=== PATIENT | male | born 1960 | race Caucasian/White ===

== ENCOUNTER 2022-04-24 10:41 | Inpatient (IN) ==
--- NOTE | 2022-03-29 09:53 | PAT Medication Instructions ---
Medication Instructions Date of Service March 29, 2022 Home Medications [email or web address] 5 billion cell sprinkle capsule (Probiotic) 1 cap PO DAILY cholecalciferol (vitamin D3) 125 mcg (5,000 unit) tablet (Vitamin D3) 125 mcg PO QAM cyclobenzaprine 5 mg tablet 5 mg PO TID PRN Spasms eletriptan 40 mg tablet 40 mg PO DIRECTED PRN Migraine Headache multivitamin 1 tab PO QAM omega 0-tcw-qsv-fish oil 100 mg-160 mg-1,000 mg capsule (Fish Oil) 1 cap PO QAM STOP taking 2 weeks before surgery (or as soon as possible if surgery is within 2 weeks) omega 8-jak-ncc-fish oil 100 mg-160 mg-1,000 mg capsule (Fish Oil) 1 cap PO QAM DO NOT take the morning of surgery Lactobacil.acidophilus-Bifido.animalis 5 billion cell sprinkle capsule (Probiotic) 1 cap PO DAILY cholecalciferol (vitamin D3) 125 mcg (5,000 unit) tablet (Vitamin D3) 125 mcg PO QAM cyclobenzaprine 5 mg tablet 5 mg PO TID PRN Spasms multivitamin 1 tab PO QAM Take morning of surgery With a small sip of water, OTHERWISE NOTHING TO EAT OR DRINK AFTER MIDNIGHT: eletriptan 40 mg tablet 40 mg PO DIRECTED PRN Migraine Headache (if needed) Take evening before surgery cyclobenzaprine 5 mg tablet 5 mg PO TID PRN Spasms (if needed) eletriptan 40 mg tablet 40 mg PO DIRECTED PRN Migraine Headache (if needed) Other Notes If you have any questions please call us at [phone] or [phone] or [phone] or [phone]
--- NOTE | 2022-04-05 09:37 | Anesthesiology Consultation ---
Date of Service April 05, 2022 Assessment & Plan (1) Encounter for pre-operative examination: COVID screening: Per assessment on 04/05: No known COVID-19 positive contacts or current COVID-19 related symptoms. Travel screen negative. At surgeon discretion if preop Covid testing being done. Chart Review Chart Review: Acceptable Risk for Surgery and Patient seen in Pre Admission Testing Teaching & Discussion Pre-Anesthesia Teaching/Discussion Notes: Instructed NPO after midnight before surgery,except medications with 15 cc of water. Medication instructions provided according to the PAT guidelines. History Surgery Operation Date: 04/24/22 12:25 Proposed Procedures p L3-L4 Decompression and L3-S1 Fusion, L4-S1 Hardware Removal, Spinal Cord Monitoring - Randell Ruiz, Height/Weight Height: 5 ft 6 in Weight: 74.6 kg Allergies Allergy/AdvReac Type Severity Reaction Status Date / Time No Known Allergies Allergy Verified 03/27/22 09:13 Medications Home Medications Medication Instructions Recorded Confirmed Last Taken Lactobacil.acidophilus-[email or web address] 1 cap PO DAILY 03/27/22 03/27/22 Unknown 5 billion cell sprinkle capsule (Probiotic) cholecalciferol (vitamin D3) 125 125 mcg PO QAM 03/27/22 03/27/22 Unknown mcg (5,000 unit) tablet (Vitamin D3) cyclobenzaprine 5 mg tablet 5 mg PO TID PRN Spasms 03/27/22 03/27/22 Unknown eletriptan 40 mg tablet 40 mg PO DIRECTED PRN Migraine 03/27/22 03/27/22 Unknown Headache multivitamin 1 tab PO QAM 03/27/22 03/27/22 Unknown omega 3-vtv-nic-fish oil 100 1 cap PO QAM 03/27/22 03/27/22 Unknown mg-160 mg-1,000 mg capsule (Fish Oil) Past Medical History Medical History BPH (benign prostatic hyperplasia) Lumbar stenosis Migraine Trigeminal neuralgia Occasional left sided facial pain Exercise / Class Metabolic Activity II 4-5 Yardwork/Stairs/Walk up hill Past Surgical History Surgical History Fusion of spine Lumbar History of anesthesia reaction Could not void post-op (had to be cathed, "very painful") History of arthroscopy R/L shoulders History of bunionectomy R/L History of colonoscopy History of esophagogastroduodenoscopy (EGD) History of tonsillectomy History of total knee replacement left History of urologic surgery Hx of hand surgery right Hx of retinal hemorrhage with repair Hx of surgical procedure hole placed in skull to attempt to help trigeminal neuralgia approx 15 yrs ago [place] teeth extracted Past Anesthesia History No Family Hx of Anesthesia Complications and Other (Could not void post-op knee surgery (had to be cathed, "very painful") ) History of PONV No Hx of PONV and Hx of Motion Sickness (Situational) Social History Smoking Status: Never smoker Do You Dip or Chew Tobacco: No Hx Alcohol Use: No Hx Substance Use: No substance use type: does not use Review of Systems Patient denies chest pain, shortness of breath, dyspnea on exertion, fever, chills, cough, wheezing, palpitations. Physical Exam Vital Signs VITALS BP 115/77 P 68 TEMP 98.6 SP02 99%RA RESP 16 PHYSICAL Full cervical extension range of motion. Full TMJ range of motion. TMD 3 finger breaths Mallampati Score 3 Dentition: missing side, upper front caps, several crowns Lungs: clear throughout to auscultation Cardiac: regular rate and rhythm, no murmurs noted Spine: normal Carotid arteries: negative bruit Extremities: no edema Lab Results Anesthesia Preop Results Results Anesthesia Widget: WBC 5.86 K/ul (4.8-10.8) 04/05/22 Hgb 14.5 g/dl (14.0-18.0) 04/05/22 Hct 42.5 % (40.1-51.0) 04/05/22 Plt 150 K/uL (130-400) 04/05/22 Na 140 mmol/L (136-145) 04/05/22 K 4.2 mmol/L (3.5-5.1) 04/05/22 Cl 103 mmol/L (98-107) 04/05/22 CO2 32 mmol/L (21-32) 04/05/22 BUN 20 mg/dl (6-23) 04/05/22 Creat 0.89 mg/dl (0.6-1.4) 04/05/22 Glucose Level 102 mg/dl (70-99(Fasting)) H 04/05/22 PT 11.4 Seconds (9.0-12.0) 04/05/22 PTT 30.3 Seconds (21.0-31.0) 04/05/22 INR 1.1 (0.9-1.1) 04/05/22 Urine Color Yellow 04/05/22 Urine Appearance Turbid (Clear) A 04/05/22 Urine pH 8.5 (4.5-7.5) H 04/05/22 Urine Specific [place] 1.016 (1.000-1.030) 04/05/22 Urine Protein Negative (Negative) 04/05/22 Urine Glucose (UA) Negative (Negative) 04/05/22 Urine Ketones Negative (Negative) 04/05/22 Urine Blood Negative (Negative) 04/05/22 Urine Nitrite Negative (Negative) 04/05/22 Urine Bilirubin Negative (Negative) 04/05/22 Urine Urobilinogen Negative (Negative) 04/05/22 Urine Leukocyte Esterase Negative (Negative) 04/05/22 Urine WBC (Auto) 1-5 /hpf (0-5) 04/05/22 Urine RBC (Auto) 0-4 /hpf (0-4) 04/05/22 Urine Hyaline Casts (Auto) 1-5 /lpf (0-5) 04/05/22 Urine Epithelial Cells (Auto) 0-5 /lpf (0-5) 04/05/22 Urine Bacteria (Auto) Negative (Negative) 04/05/22 Blood Type O Negative 04/05/22 Antibody Screen NEGATIVE 04/05/22 Testing Electrocardiogram Date: 04/05/22 NSR at 71bpm. Chest X-Ray Date: 10/25/21 Mild atherosclerotic calcification of the aortic arch and descending thoracic aorta. No evidence of active disease in the chest. Stress Test Date: 01/26/21 There is no evidence of stress-induced ischemia. 99% MPHR COVID-19 Risk Screen Screening Information COVID-19 Screen Date: 04/05/22 Exposure 21 Days Family/Household +COVID Last 21 Days: No Exposure 10 Days Any COVID Exposure Last 10 Days: No Symptoms Last 10 Days Experienced COVID Sx Last 10 Days: No + COVID 0-90 Days COVID + in Last 0-90 Days: No
[~2022-04-24 10:41] MED LIST: ACETAMINOPHEN 500 MG TAB PO SCH; CeleBREX 200 MG CAP PO SCH; GABAPENTIN 600 MG DOSE PO SCH; LR 15ML/HR IV SCH; SUGAMMADEX SODIUM 200 MG/2 ML VIAL IV ONE; ceFAZolin 2000MG 2,000 MG/15 ML SYR IV SCH
[2022-04-24] MEDS ORDERED: DEXAMETHASONE SOD INJ 4 MG/ML VIAL ONE ×3 (10:50)
[2022-04-24] MEDS ORDERED: GLYCOPYRROLATE 0.2 MG/ML VIAL ONE (10:50)
[2022-04-24] MEDS ORDERED: MIDAZOLAM HCL 1 MG/ML 2ML VIAL ONE (10:50)
[2022-04-24] MEDS ORDERED: ROCURONIUM BROMIDE 10 MG/ML 5 ML VIAL IV ONE ×4 (10:50→13:15)
[2022-04-24] MEDS ORDERED: ONDANSETRON INJ 2 MG/ML 2 ML VIAL ONE (10:50)
[2022-04-24] MEDS ORDERED: PROPOFOL IV EMULSION 10 MG/ML 20 ML VIAL IV ONE (10:50)
[2022-04-24] MEDS ORDERED: fentaNYL citrate 100 MCG/2 ML VIAL ONE ×3 (10:50→14:09)
[2022-04-24] MEDS ORDERED: LABETALOL HCL IV 5 MG/ML 20ML IV PRN (11:35)
[2022-04-24] MEDS ORDERED: NALOXONE HCL 0.4 MG/1 ML VIAL/CARP IV PRN ×2 (11:35→16:36)
[2022-04-24] MEDS ORDERED: ONDANSETRON INJ 2 MG/ML 2 ML VIAL IV PRN ×2 (11:35→16:36)
[2022-04-24] MEDS ORDERED: FLUMAZENIL 0.1 MG/1 ML 10 ML VIAL IV PRN (11:35)
[2022-04-24] MEDS ORDERED: ATROPINE SULFATE 0.1 MG/ML 10ML SYR IV PRN (11:35)
[2022-04-24] MEDS ORDERED: ePHEDrine sulfate 50 MG/ML AMP IV PRN (11:35)
[2022-04-24] MEDS ORDERED: PROMETHAZINE HCL 12.5 MG in SODIUM CHLORIDE 0.9% 50 ML IV PRN ×2 (11:35→16:36)
--- NOTE | 2022-04-24 12:20 | History & Physical Bridge Note ---
Date of Service April 24, 2022 History & Physical Bridge Note I have examined the patient, reviewed the History & Physical and in the interval since the performance of the History & Physical I have noted the following changes of clinical significance: no changes noted
--- NOTE | 2022-04-24 12:21 | History & Physical Report ---
Date of Service April 24, 2022 Assessment & Plan (1) Neurogenic claudication due to lumbar spinal stenosis: Plan: L3-L4 decompression and L3-S1 fusion, L4-S1 hardware removal History of Present Illness Chief Complaint: Back and leg pain Primary Care Provider: Harish Limon MD This is a 62-year-old male who presents with chronic persistent back and bilateral leg pain after an extensive course of nonoperative care is here for surgical invention. Allergies Allergy/AdvReac Type Severity Reaction Status Date / Time No Known Allergies Allergy Verified 04/24/22 11:12 Home Medications Medication Instructions Recorded Confirmed Type Lactobacil.acidophilus-Bifido.animalis 1 cap PO DAILY 03/27/22 04/24/22 History 5 billion cell sprinkle capsule (Probiotic) cholecalciferol (vitamin D3) 125 125 mcg PO QAM 03/27/22 04/24/22 History mcg (5,000 unit) tablet (Vitamin D3) cyclobenzaprine 5 mg tablet 5 mg PO TID PRN Spasms 03/27/22 04/24/22 History eletriptan 40 mg tablet (Relpax) 40 mg PO DIRECTED PRN Migraine 03/27/22 04/24/22 History Headache multivitamin 1 tab PO QAM 03/27/22 04/24/22 History omega 3-imz-jnf-fish oil 100 1 cap PO QAM 03/27/22 04/24/22 History mg-160 mg-1,000 mg capsule (Fish Oil) Past Med/Surg History Medical History BPH (benign prostatic hyperplasia) Lumbar stenosis Migraine Trigeminal neuralgia Occasional left sided facial pain Surgical History Fusion of spine Lumbar History of anesthesia reaction Could not void post-op (had to be cathed, "very painful") History of arthroscopy R/L shoulders History of bunionectomy R/L History of colonoscopy History of esophagogastroduodenoscopy (EGD) History of tonsillectomy History of total knee replacement left History of urologic surgery Hx of hand surgery right Hx of retinal hemorrhage with repair Hx of surgical procedure hole placed in skull to attempt to help trigeminal neuralgia approx 15 yrs ago [place] teeth extracted Social History Smoking Status: Never smoker Second Hand Exposure: No; Do You Dip or Chew Tobacco: No; Tobacco Cessation Education Requested by Patient: No Hx Alcohol Use: No Hx Substance Use: No Preferred Language: Belarusian Communication Ability: Effective Development Planner Required: No Beliefs That Will Affect Care: None Current Living Situation: Alone Other Information That Helps Us Care for You: No Feels Safe at Home: Yes Safety Concerns: Feels Safe At This Time Assistive Devices: Glasses Physical Exam Physical Exam: Patient is alert and oriented Heart regular rhythm Lungs clear Results & Data Results & Data ([facility]) Vital Signs (Past 12 Hours) Vital Signs Temp Pulse Resp BP Pulse Ox O2 Del Method 04/24/22 11:16 36.7 C 64 20 137/84 100 Room Air
[2022-04-24] MEDS ORDERED: BUPIVACAINE/EPINEPHRINE 0.5% MPF 1:200,000 30 ML VIAL ONE (12:25)
[2022-04-24] MEDS ORDERED: ceFAZolin 330 MG/ML 1 GM VIAL ONE (12:25)
[2022-04-24] MEDS ORDERED: FLOSEAL HEMOSTATIC MATRIX 10ML TOP ONE (13:46)
--- NOTE | 2022-04-24 14:24 | Operative Report ---
Post Operative Report Pre & Post Diagnosis Operation Date: 04/24/22 12:45 Pre-Op Diagnosis: Neurogenic Claudication due to Lumbar Spinal Stenosis Post-Op Diagnosis: Neurogenic Claudication due to Lumbar Spinal Stenosis I identified the patient and participated in the time-out.: Yes Procedure Operation Date: 04/24/22 12:45 Actual Procedures #1 removal of posterior instrumentation L4-L5 L5-S1. #2 exploration of fusion L4-L5 L5-S1. #3 placement of a lumbar decompression with bilateral medial facetectomies and foraminotomies L2-L3 L3-L4. #4 posterior spinal fusion L3-L4. #5 placement of posterior instrumentation L3-L4. #6 interbody fusion L3-L4. #[address] Spira 12 x 26 mm at L3-L4 per #8 placement of locally harvested morselized autograft in the posterior gutters. #9 placement of I factor combined with V toss in the interbody space and posterior lateral gutters. Surgeon Randell Ruiz, Inspector Hairspring Truing Lizzy Magallanes Estimated Blood Loss 120 Findings Consistent with Post-Op Diagnosis Specimens None Indications This is a 8-year-old male who presents above-mentioned diagnosis after failed course of nonoperative care is here for surgical invention. Description of Procedure The patient was met with identified informed consent obtained. Patient was then taken operative suite underwent patient placed in a prone position on the Daniel table on top Raji frame. All bony prominences well-padded eyes inspected to ensure no external pressure placed upon the. This point the lumbar spine was prepped and draped in normal sterile fashion. Sharp dissection with the assistance of Bovie cautery performed down to and exposing the lamina transverse processes of L3 and instrumentation at L4-L5 and S1 levels bilaterally. And then proceeded move the hardware bilaterally explore the fusion mass noting it to be mature and intact. Then performed a complete nati ectomy of L3 partial medically L2 including bilateral medial facetectomies and foraminotomies addressing severe spinal stenosis. Pedicle screws were then placed in L3 and L4 bilaterally with assistance of fluoroscopy and the properly sized juan carlos placed. By way of a transforaminal approach and left complete discectomy of L3-L4 was performed endplates curetted to subcortical bleeding bone and a 12 x 26 mm spiral cage with I factor tapped in position. The rods then locked in final position bilaterally. The transverse processes of L3 and L4 burred to subcortical bleeding bone. I factor bone of the test and locally harvested morselized autograft placed in the posterior gutters. 15 round TALISHA inserted. The incision was then closed with 1 Vicryl in the fascia 2-0 Vicryl subcutaneously and 4 Monocryl for final skin closure. Steri-Strips dressings placed. Patient waken taken to PACU in stable condition. Please note spinal cord monitoring was utilized at the procedure no changes noted. Lastly Lizzy Magallanes was present at the entire surgery and while the patient positioning complex portions of the surgery and final skin closure. I attest to the content of the Intraoperative Record and any orders documented therein. Any exceptions are noted below.
[2022-04-24] MEDS: fentaNYL citrate 100 MCG/2 ML VIAL IV PRN ×4 (14:39→14:54)
--- NOTE | 2022-04-24 14:50 | Fluoroscopy Report ---
FL lumbar spine 2-3V CLINICAL HISTORY: L3-S1 DFI/HR L4-S1 TECHNIQUE: 2 views were obtained with the C-arm in the OR with the above procedure. Total fluoroscopy time was 13.6 seconds. Radiation dose was 5.35 mGy. Comparison: Comparison is made to lumbar spine fluoroscopy 12/10/2013 FINDINGS/IMPRESSION: Intraoperative images were obtained of removal of L4 S1 hardware and discectomy and fusion of L3-L4. Please correlate with intraoperative fluoroscopy and operative report. ACT 112: Negative or not required by law. Electronically signed by: Magan Santos M.D. 04/24/2022 2:49 PM
[2022-04-24] MEDS: HYDROmorphone INJ 1 MG/ML SYRINGE IV PRN ×12 (14:59→15:54)
[2022-04-24] MEDS ORDERED: HYDROmorphone INJ 0.5 MG/0.5 ML SYR IV STA (15:39)
--- NOTE | 2022-04-24 16:06 | Anesthesiology Progress Note ---
Date of Service April 24, 2022 Anesthesia Post Procedure Vital Signs Vital Signs: Temp Pulse Resp BP Pulse Ox O2 Del Method O2 Flow Rate 04/24/22 15:55 36.5 C 68 17 137/83 100 Nasal Cannula 2 04/24/22 15:45 56 L 12 122/72 100 Nasal Cannula 2 04/24/22 15:35 66 21 141/80 H 100 Nasal Cannula 2 04/24/22 15:25 69 13 151/86 H 100 Nasal Cannula 2 04/24/22 15:15 72 20 129/89 100 Nasal Cannula 2 04/24/22 15:05 73 17 143/84 H 100 Nasal Cannula 2 04/24/22 14:55 77 18 146/86 H 100 Oxymask 3 04/24/22 14:45 85 12 152/90 H 100 Oxymask 5 04/24/22 14:35 36.0 C L 95 H 14 151/88 H 100 Oxymask 9 04/24/22 11:16 36.7 C 64 20 137/84 100 Room Air Pain Intensity Back: Pain Intensity: 7 Transfer of Care Handoff Completed per policy Notes Mental Status: alert / awake / arousable Patient Amnestic to Procedure: Yes Nausea / Vomiting: adequately controlled Pain: adequately controlled Airway Patency, RR, SpO2: stable & adequate BP & HR: stable & adequate Hydration State: stable & adequate Anesthetic Complications: no major complications apparent
[2022-04-24] MEDS ORDERED: bisacodyL 10 MG SUPP PR PRN (16:36)
[2022-04-24] MEDS ORDERED: ALUMINUM/MAGNESIUM SUSP 30 ML UDC PO PRN (16:36)
[2022-04-24] MEDS ORDERED: DO NOT ADMINISTER PNEUMOCOCCAL VACCINE PRN (16:36)
[2022-04-24] MEDS ORDERED: LORazepam 2 MG/1 ML VIAL IV PRN (16:36)
[2022-04-24] MEDS ORDERED: FAMOTIDINE 20 MG TAB PO PRN (16:36)
[2022-04-24] MEDS ORDERED: ONDANSETRON 4 MG OD TAB PO PRN (16:36)
[2022-04-24] MEDS ORDERED: HYDROmorphone INJ 1 MG/ML SYRINGE IV PRN (16:36)
[2022-04-24] MEDS ORDERED: ACETAMINOPHEN 1,000 MG/100 ML VIAL IV PRN (16:36)
[2022-04-24] MEDS ORDERED: hydrOXYzine HCl 25 MG TAB PO PRN (16:36)
[2022-04-24] MEDS ORDERED: MAGNESIUM HYDROXIDE SUSP 30 ML UDC PO PRN (16:36)
[2022-04-24] MEDS ORDERED: METOCLOPRAMIDE HCL INJ 5 MG/ML 2 ML VIAL IV PRN (16:36)
[2022-04-24] MEDS ORDERED: SOD PHOSPHATE/SOD BIPHOSPHATE ENEMA 132 ML BTL PR PRN (16:36)
[2022-04-24] MEDS ORDERED: traMADol HCL 50 MG TABLET PO PRN (16:36)
[2022-04-24] MEDS ORDERED: DO NOT ADMINISTER FLU VACCINE PRN (16:36)
[2022-04-24] MEDS ORDERED: diphenhydrAMINE Capsule 25 MG CAP PO PRN (16:36)
[2022-04-24] MEDS ORDERED: CYCLOBENZAPRINE HCL 5 MG TAB PO PRN (16:36)
[2022-04-24] MEDS: HYDROmorphone INJ 0.5 MG/0.5 ML SYR IV PRN ×2 (17:04→18:46)
--- NOTE | 2022-04-24 17:13 | Consultation ---
Date of Consultation April 24, 2022 Assessment & Plan (1) Neurogenic claudication due to lumbar spinal stenosis: (2) BPH (benign prostatic hyperplasia): (3) H/O migraine: Plan Mr. Snow is a 62-year-old male who presented to the [facility] for an elective procedure under the care of Dr. Ruiz for decompression and fusion of L3-L4 and hardware removal and L4-S1 after failed conservative management as an outpatient. Patient relatively healthy at [facility] with history of migraines and BPH. Neurogenic Claudication d/t lumbar spinal stenosis: -POD#0 s/p decompression and fusion surgery L3-L4, along with hardware removal L4-S1 with Dr. ruiz. -EBL 120mL; TALISHA drain x1 -Per ortho for pain control, wound care, anticoagulation and activities. -Monitor H&H, pre op Hgb 14.5; trend in AM -continue incentive spirometry -PT/OT when appropriate -Remove appiah when IV fluids discontinued and working with PT/OT H/O Migranes: -Reports 8-9 headaches per month for the past 4 years -Takes Eletriptan PRN -Recently started on Nurtec every other day to prevent headaches Disposition: PCP: Dr. Limon with [facility] CODE STATUS: Full code VTE prophylaxis per admitting team; teds and SCDs A total of 34 minutes was spent with greater than 50% of that time personally reviewing all current laboratory work and diagnostic imaging studies obtained in the ED. Additionally, I was able to review the patients past medication reconciliation and history with direct visualization in the patients chart. Included in the time above, a portion of that time was spent assessing the patient while discussing and collaborating with specialists, if necessary, and making medical decisions regarding orders to be placed. All of the aforementioned completed while collaborating with Dr. Victoria for a full treatment plan. Please see her addendum for further details. Supervising Physician Co-Signing Physician Notes Pt seen and examined by me, care coordinated w/ Coty. MIRTAH Frias, pls refer to her note above for further detail. Mr. Snow is a 62 yo M w/ hx of migraine HAs, BPH, hx of lumbar stenosis and previous hx of lumbar spine surgery who is now now s/p decompression and fusion of L3-L4 and hardware removal and L4-S1 after failed conservative management as an outpatient. Patient is currently laying in bed, comfortable, in NAD. Just received Dilaudid. He is awake alert oriented answers appropriately. Currently denies any pain or discomfort, no chest pain shortness of breath, headache nausea or abdominal pain. He does have a Appiah catheter, draining yellow urine. He is moving his toes, SCDs are applied. Heart sounds regular. Lung sounds clear to auscultation bilaterally. Abdomen soft nontender nondistended, positive bowel sounds. Skin is warm and dry. Medications reviewed. Will check H&H in the morning. Continue to closely monitor. MD Julien History of Present Illness Requesting Physician: Dr. Ruiz Reason for Consultation: Postop medical management Attending Physician: Randell Ruiz DO History of Present Illness Mr. Snow is a 62-year-old male who presented to the [facility] for an elective procedure under the care of Dr. Ruiz for decompression and fusion of L3-L4 and hardware removal and L4-S1 after failed conservative management as an outpatient. Patient relatively healthy at baseline with history of migraines and BPH. Patient is sitting upright in his hospital bed in no apparent distress. Patient is AAOx4. Patient just received a dose of IV Dilaudid 10 minutes ago. Patient had previous decompression and fusion surgery under the care of Dr. Welch. Patient currently denies headache, dizziness, shortness of breath, chest pain, palpitations, numbness or tingling in lower extremities, recent falls or trauma or loss of bowel or bladder function. Patient does have indwelling Appiah catheter at this time with clear yellow output. Patient is currently on 2 L nasal cannula however SPO2 100% so suggested removal of supplemental O2. Patient states that he was diagnosed with migraines 4 years ago without aura. Reports having 8-9 migraines per month and takes eletriptan as needed when the headache starts and recently was started on Nurtec every other day to prevent headaches. His daughter Pat is his main contact center associate for any information. [facility] hospitalist service was consulted for postoperative medical management. [facility] hospitalists are available 23/10 via [place] text for any additional assistance that we can provide. Thank you kindly for this consultation. Please see below for further details and assessment and plan. Allergies Allergy/AdvReac Type Severity Reaction Status Date / Time No Known Allergies Allergy Verified 04/24/22 11:12 Home Medications Medication Instructions Recorded Confirmed Type Lactobacil.acidophilus-Bifido.animalis 1 cap PO DAILY 03/27/22 04/24/22 History 5 billion cell sprinkle capsule (Probiotic) cholecalciferol (vitamin D3) 125 125 mcg PO QAM 03/27/22 04/24/22 History mcg (5,000 unit) tablet (Vitamin D3) cyclobenzaprine 5 mg tablet 5 mg PO TID PRN Spasms 03/27/22 04/24/22 History eletriptan 40 mg tablet (Relpax) 40 mg PO DIRECTED PRN Migraine 03/27/22 04/24/22 History Headache multivitamin 1 tab PO QAM 03/27/22 04/24/22 History omega 1-bxj-loo-fish oil 100 1 cap PO QAM 03/27/22 04/24/22 History mg-160 mg-1,000 mg capsule (Fish Oil) Patient History Medical History (Updated 04/24/22 @ 17:10 by MIRTHA Chu) BPH (benign prostatic hyperplasia) H/O migraine Lumbar stenosis Migraine Trigeminal neuralgia Occasional left sided facial pain Surgical History Fusion of spine Lumbar History of anesthesia reaction Could not void post-op (had to be cathed, "very painful") History of arthroscopy R/L shoulders History of bunionectomy R/L History of colonoscopy History of esophagogastroduodenoscopy (EGD) History of tonsillectomy History of total knee replacement left History of urologic surgery Hx of hand surgery right Hx of retinal hemorrhage with repair Hx of surgical procedure hole placed in skull to attempt to help trigeminal neuralgia approx 15 yrs ago [place] teeth extracted Social History Smoking Status: Never smoker Second Hand Exposure: No; Do You Dip or Chew Tobacco: No; Tobacco Cessation Education Requested by Patient: No Hx Alcohol Use: No Hx Substance Use: No Preferred Language: Nepalese Communication Ability: Effective [employer]velopment [employer] Required: No Beliefs That Will Affect Care: None Current Living Situation: Alone Other Information That Helps Us Care for You: No Feels Safe at Home: Yes Safety Concerns: Feels Safe At This Time Assistive Devices: Glasses Review of Systems Review of Systems: Neuro: (-) Falls, trauma, slurred speech (+) incisional pain HEENT: (-) ROMAN, dizziness, dysphagia, visual or auditory changes CV: (-) CP, palpitations, swelling Resp: (-) SOB GI: (-) appetite changes, N/V/D, bowel changes : (-) urinary changes Skin: (-) rashes Psych: (-) anxiety, depression Physical Exam Physical Exam: Neuro: AAOx4, PERRLA, no aphagia, memory changes, CNII-XII grossly intact HEENT: head normocephalic, moist mucus membranes CV: S1/S2, (-) M/G/R, (-) edema, cap refill < 3 seconds . TALISHA drain x1 with tolu red blood. Resp: Lungs CTA in all doyle. On RA GI: Abdomen S/NT/ND, Ax4 bowel sounds, (-) CVA tenderness Musculoskeletal: 5/5 B/L UE strength, 5/5 B/L LE strength. No gait disturbance Skin: (-) rashes , (-) erythema. Lumbar dressing C/D/I. Psych: euthymic mood [facility] Data ([facility]) Vital Signs (Past 12 Hours) Vital Signs Temp Pulse Pulse Resp BP Pulse Ox O2 Del Method 04/24/22 17:06 36.4 C L 85 16 142/87 H 100 Nasal Cannula 04/24/22 16:15 73 13 129/71 99 Nasal Cannula 04/24/22 16:05 55 L 12 136/66 100 Nasal Cannula 04/24/22 15:55 36.5 C 68 17 137/83 100 Nasal Cannula 04/24/22 15:45 56 L 12 122/72 100 Nasal Cannula 04/24/22 15:35 66 21 141/80 H 100 Nasal Cannula 04/24/22 15:25 69 13 151/86 H 100 Nasal Cannula 04/24/22 15:15 72 20 129/89 100 Nasal Cannula 04/24/22 15:05 73 17 143/84 H 100 Nasal Cannula 04/24/22 14:55 77 18 146/86 H 100 Oxymask 04/24/22 14:45 85 12 152/90 H 100 Oxymask 04/24/22 14:35 36.0 C L 95 H 14 151/88 H 100 Oxymask 04/24/22 11:16 36.7 C 64 20 137/84 100 Room Air O2 Flow Rate 04/24/22 17:06 2 04/24/22 16:15 2 04/24/22 16:05 2 04/24/22 15:55 2 04/24/22 15:45 2 04/24/22 15:35 2 04/24/22 15:25 2 04/24/22 15:15 2 04/24/22 15:05 2 04/24/22 14:55 3 04/24/22 14:45 5 04/24/22 14:35 9 04/24/22 11:16 Laboratory Results 04/24/22 04/24/22 Range/Units Unknown 11:00 SARS-CoV-2, RNA, NAAT NEGATIVE (NEGATIVE) Blood Type O Negative Antibody Screen NEGATIVE Crossmatch See Detail Diagnostic Findings Lumbar Spine X-Ray 04/24/22 12:45 FL lumbar spine 2-3V CLINICAL HISTORY: L3-S1 DFI/HR L4-S1 TECHNIQUE: 2 views were obtained with the C-arm in the OR with the above procedure. Total fluoroscopy time was 13.6 seconds. Radiation dose was 5.35 mGy. Comparison: Comparison is made to lumbar spine fluoroscopy 12/10/2013 FINDINGS/IMPRESSION: Intraoperative images were obtained of removal of L4 S1 hardware and discectomy and fusion of L3-L4. Please correlate with intraoperative fluoroscopy and operative report. ACT 112: Negative or not required by law. Electronically signed by: Magan Santos M.D. 04/24/2022 2:49 PM Medications Administered Current Inpatient Medications Acetaminophen (Acetaminophen 500 Mg Tab) 1,000 mg PO PREOP SANDI Stop: 04/24/22 18:00 Last Admin: 04/24/22 11:28 Dose: 1,000 mg Acetaminophen (Acetaminophen 500 Mg Tab) 1,000 mg PO Q8H PRN PRN Reason: MILD Pain Scale 1,2,3 & Pre PT Stop: 05/24/22 16:35 Al Hydrox/Mg Hydrox/Simethicone (Aluminum/Magnesium Susp 30 Ml Udc) 30 ml PO Q6H PRN PRN Reason: Dyspepsia Stop: 05/24/22 16:35 Atropine Sulfate (Atropine Sulfate 0.1 Mg/Ml 10ml Syr) 0.5 mg IV Q1M PRN PRN Reason: PACU Use-HR<40 &/or Bradycardi Stop: 04/24/22 19:35 Bisacodyl (Bisacodyl 10 Mg Supp) 10 mg ND DAILY PRN PRN Reason: Constipation Stop: 05/24/22 16:35 Celecoxib (Celebrex 200 Mg Cap) 200 mg PO PREOP SANDI Stop: 04/24/22 18:00 Last Admin: 04/24/22 11:28 Dose: 200 mg Cyclobenzaprine HCl (Cyclobenzaprine Hcl 5 Mg Tab) 5 mg PO TID PRN PRN Reason: Spasms Stop: 05/24/22 16:35 Diphenhydramine HCl (Diphenhydramine Capsule 25 Mg Cap) 25 mg PO Q6H PRN PRN Reason: Allergic Rhinitis/Insomnia Stop: 05/24/22 16:35 Ephedrine Sulfate (Ephedrine Sulfate 50 Mg/Ml Amp) 5 mg IV Q5M PRN PRN Reason: PACU Use Only-SBP<90 mmHg Stop: 04/24/22 19:35 Famotidine (Famotidine 20 Mg Tab) 20 mg PO Q12H PRN PRN Reason: Dyspepsia Stop: 05/24/22 16:35 Fentanyl Citrate (Fentanyl Citrate 100 Mcg/2 Ml Vial) 25 mcg IV Q5M PRN PRN Reason: PACU Use Only-Pain Stop: 04/24/22 19:35 Last Admin: 04/24/22 14:54 Dose: 25 mcg Flumazenil (Flumazenil 0.1 Mg/1 Ml 10 Ml Vial) 0.2 mg IV Q2M PRN PRN Reason: PACU Use Only-Benzo Reversal Stop: 04/24/22 19:36 Gabapentin (Gabapentin 600 Mg Dose) 600 mg PO PREOP SANDI Stop: 04/24/22 18:00 Last Admin: 04/24/22 11:28 Dose: 600 mg Hydromorphone HCl (Hydromorphone Inj 1 Mg/Ml Syringe) 0.25 mg IV Q5M PRN PRN Reason: PACU Use Only-Pain Stop: 04/24/22 19:36 Last Admin: 04/24/22 15:54 Dose: 0.25 mg Hydromorphone HCl (Hydromorphone Inj 0.5 Mg/0.5 Ml Syr) 0.5 mg IV Q3H PRN PRN Reason: MODERATE Pain (Scale 4,5,6) & Pre PT Stop: 05/08/22 16:35 Last Admin: 04/24/22 17:04 Dose: 0.5 mg Hydromorphone HCl (Hydromorphone Inj 1 Mg/Ml Syringe) 1 mg IV Q3H PRN PRN Reason: SEVERE Pain (Scale 7,8,9,10) Stop: 05/08/22 16:35 Hydroxyzine HCl (Hydroxyzine Hcl 25 Mg Tab) 25 mg PO Q8H PRN PRN Reason: Anxiety Stop: 05/24/22 16:35 Cefazolin Sodium (Ancef 2000mg) 2,000 mg in 15 mls @ 3.75 mls/min IV PREOP SANDI; Protocol Stop: 04/24/22 18:00 Last Admin: 04/24/22 12:40 Dose: 3.75 mls/min Lactated Ringer's (Lr) 1,000 mls @ 15 mls/hr IV .Q24H SANDI Stop: 04/25/22 05:59 Last Infusion: 04/24/22 12:40 Dose: Infused Promethazine HCl 12.5 mg/ (Sodium Chloride) 50.5 mls @ 204 mls/hr IV ONCE PRN PRN Reason: PACU Use Only-Nausea/Vomiting Stop: 04/24/22 19:36 Lactated Ringer's (Lr) 1,000 mls @ 100 mls/hr IV .Q10H SANDI Stop: 05/24/22 16:35 Promethazine HCl 12.5 mg/ (Sodium Chloride) 50.5 mls @ 202 mls/hr IV Q6H PRN PRN Reason: Nausea &/or Vomiting Stop: 05/24/22 16:35 Acetaminophen (Ofirmev) 1,000 mg in 100 mls @ 400 mls/hr IV Q8H PRN PRN Reason: Pain Rating 1-3 & Pre PT Stop: 04/25/22 16:36 Cefazolin Sodium (Ancef 2000mg) 2,000 mg in 15 mls @ 3.75 mls/min IV Q8H SANDI; Protocol Stop: 04/25/22 04:33 Dexamethasone 6 mg/ Syringe 1.5 mls @ 1 mls/min IV DAILY SANDI Stop: 04/27/22 09:02 Influenza Virus Vaccine Quadrival (Do Not Administer Flu Vaccine) 1 each N/A PRN PRN PRN Reason: Notification Stop: 05/24/22 16:35 Labetalol HCl (Labetalol Hcl Iv 5 Mg/Ml 20ml) 5 mg IV Q5M PRN PRN Reason: PACU Use-SBP>160 or DBP>100 Stop: 04/24/22 19:36 Lorazepam (Lorazepam 0.5 Mg Tab) 0.5 mg PO Q8H PRN PRN Reason: Sedation/Anxiety Stop: 05/24/22 16:35 Lorazepam (Lorazepam 2 Mg/1 Ml Vial) 0.5 mg IV Q8H PRN PRN Reason: Sedation/Anxiety Stop: 05/24/22 16:35 Magnesium Hydroxide (Magnesium Hydroxide Susp 30 Ml Udc) 30 ml PO Q24H PRN PRN Reason: Constipation Stop: 05/24/22 16:35 Metoclopramide HCl (Metoclopramide Hcl Inj 5 Mg/Ml 2 Ml Vial) 10 mg IV Q6H PRN PRN Reason: Nausea &/or Vomiting Stop: 05/24/22 16:35 Miscellaneous (Relpax 40mg Tab ~ Order Awaiting Action) 1 each N/A QS SANDI Stop: 05/25/22 00:00 Naloxone HCl (Naloxone Hcl 0.4 Mg/1 Ml Vial/Carp) 0.2 mg IV Q2M PRN PRN Reason: PACU Use Only-Opiate Reversal Stop: 04/24/22 19:36 Naloxone HCl (Naloxone Hcl 0.4 Mg/1 Ml Vial/Carp) 0.1 mg IV Q5M PRN PRN Reason: Oversedation/Resp depression Stop: 05/24/22 16:35 Ondansetron HCl (Ondansetron Inj 2 Mg/Ml 2 Ml Vial) 4 mg IV ONCE PRN PRN Reason: PACU Use Only-Nausea/Vomiting Stop: 04/24/22 19:36 Ondansetron HCl (Ondansetron Inj 2 Mg/Ml 2 Ml Vial) 4 mg IV Q6H PRN PRN Reason: Nausea &/or Vomiting Stop: 05/24/22 16:35 Ondansetron HCl (Ondansetron 4 Mg Od Tab) 4 mg PO Q6H PRN PRN Reason: Nausea Stop: 05/24/22 16:35 Oxycodone HCl (Oxycodone Hcl Ir 5 Mg Tab (Immediate Release)) 5 - 10 mg PO Q4H PRN PRN Reason: Pain & Pre PT Stop: 05/08/22 16:35 Pneumococcal Polyvalent Vaccine (Do Not Administer Pneumococcal Vaccine) 1 each N/A PRN PRN PRN Reason: Notification Stop: 05/24/22 16:35 Polyethylene Glycol (Polyethylene (Miralax) 17 Gm Pack) 17 gm PO Q6 SANDI Stop: 05/25/22 05:59 Senna/Docusate Sodium (Docusate Sodium/Senna 50/8.6mg Tab) 2 tab PO HS SANDI Stop: 05/24/22 20:59 Sodium Biphosphate/Sodium Phosphate (Sod Phosphate/Sod Biphosphate Enema 132 Ml Btl) 132 ml ND ONE PRN PRN Reason: Constipation Stop: 05/24/22 16:35 Tramadol HCl (Tramadol Hcl 50 Mg Tablet) 50 - 100 mg PO Q4H PRN PRN Reason: Moderate-Severe pain & Pre PT Stop: 05/24/22 16:35 Vitamin D (Cholecalciferol 5,000 Units 125 Mcg Tab) 5,000 units PO QAM SANDI Stop: 05/25/22 08:59
[2022-04-24] MEDS: oxyCODONE HCL IR 5 MG TAB (IMMEDIATE RELEASE) PO PRN ×2 (17:49→23:08)
[2022-04-24] MEDS: DOCUSATE SODIUM/SENNA 50/8.6MG TAB PO SCH (19:53)
[2022-04-24] MEDS: ceFAZolin 2000MG 2,000 MG/15 ML SYR IV SCH (20:05)
[2022-04-24] MEDS: LACTATED RINGER'S 1,000 ML IV SCH (20:05)
[2022-04-25] MEDS: LACTATED RINGER'S 1,000 ML IV SCH (03:56)
[2022-04-25] MEDS: ceFAZolin 2000MG 2,000 MG/15 ML SYR IV SCH (03:59)
[2022-04-25] MEDS: oxyCODONE HCL IR 5 MG TAB (IMMEDIATE RELEASE) PO PRN ×5 (04:00→20:03)
[2022-04-25] MEDS: POLYETHYLENE (MIRALAX) 17 GM PACK PO SCH ×3 (06:06→17:33)
[2022-04-25] MEDS: ACETAMINOPHEN 500 MG TAB PO PRN ×2 (06:08→14:31)
[2022-04-25 07:03] LABS: Calcium 8.5 mg/dl (8.5-10.1); Potassium 4.1 mmol/L (3.5-5.1)
[2022-04-25 07:09] LABS: BUN Creatinine Ratio 17.1 (10-20); Creatinine Clr Calc Pharmacy 101.3 ml/min; Est GFR (African American) 118.9 ml/min; Est GFR (Non-African American) 102.6 ml/min
[2022-04-25 07:16] LABS: Hematocrit (blood only) 32.4 % (40.1-51.0); Hemoglobin 11.2 g/dl (14.0-18.0); Mean Corpuscular Hgb Conc 34.6 g/dL (32.0-36.0); Mean Corpuscular Volume 86.9 fL (80.0-100.0); Mean Platelet Volume 11.2 fL (9.4-12.4); Platelet Count 134 K/uL (130-400); RDW Coefficient of Variation 12.5 % (11.5-14.5); RDW Standard Deviation 39.8 fL (36.4-46.3); Red Blood Count 3.73 M/uL (4.63-6.08); White Blood Count 8.23 K/ul (4.8-10.8)
[2022-04-25 07:17] LABS: Basophils # (auto) 0.02 K/uL (0-0.2); Basophils % (auto) 0.2 %; Immature Granulocytes # (auto) 0.02 K/uL (0.00-0.02); Immature Granulocytes % (auto) 0.2 %; Lymphocytes # (auto) 0.93 K/uL (1.2-3.4); Lymphocytes % (auto) 11.3 %; Monocytes # (auto) 0.87 K/uL (0.24-0.82); Monocytes % (auto) 10.6 %; Neutrophils # (auto) 6.39 K/uL (1.4-6.5); Neutrophils % (auto) 77.7 %
[2022-04-25] MEDS: CHOLECALCIFEROL 5,000 UNITS 125 MCG TAB PO SCH (08:02)
[2022-04-25] MEDS: dexAMETHasone 6 MG in SYRINGE 0 ML IV SCH (08:03)
--- NOTE | 2022-04-25 08:40 | Hospitalist Progress Note ---
Date of Service April 25, 2022 Assessment & Plan (1) Neurogenic claudication due to lumbar spinal stenosis: (2) BPH (benign prostatic hyperplasia): (3) H/O migraine: Plan Mr. Snow is a 62-year-old male who presented to the [facility] for an elective procedure under the care of Dr. Ruiz for decompression and fusion of L3-L4 and hardware removal and L4-S1 after failed conservative management as an outpatient. Patient relatively healthy at [facility] with history of migraines and BPH. Neurogenic Claudication d/t lumbar spinal stenosis: -POD#1 s/p decompression and fusion surgery L3-L4, along with hardware removal L4-S1 with Dr. ruiz. -EBL 120mL; TALISHA drain x1 -Per ortho for pain control, wound care, anticoagulation and activities. -Monitor H&H, pre op Hgb 14.5; trend in AM -continue incentive spirometry -PT/OT when appropriate -Remove appiah when IV fluids discontinued and working with PT/OT H/O Migranes: -Reports 8-9 headaches per month for the past 4 years -Takes Eletriptan PRN -Recently started on Nurtec every other day to prevent headaches Disposition: PCP: Dr. Limon with [facility] CODE STATUS: Full code VTE prophylaxis per admitting team; teds and SCDs Admission and Anticipated Discharge Date Admission Date: April 24, 2022 Subjective Pt seen in follow up of lumbar spine surgery Results & Data Results & Data ([facility]) Vital Signs (Past 12 Hours) Vital Signs Temp Pulse Resp BP Pulse Ox O2 Del Method O2 Flow Rate 04/25/22 07:24 36.5 C 67 18 126/69 97 Room Air 04/25/22 03:03 36.5 C 79 17 131/85 100 Room Air 04/24/22 22:57 36.5 C 81 17 133/79 100 Nasal Cannula 2 Laboratory Results 04/25/22 04/25/22 04/24/22 Range/Units 05:48 05:48 Unknown WBC 8.23 (4.8-10.8) K/ul RBC 3.73 L (4.63-6.08) M/uL Hgb 11.2 L (14.0-18.0) g/dl Hct 32.4 L (40.1-51.0) % MCV 86.9 (80.0-100.0) fL MCH 30.0 (25.0-34.0) pg MCHC 34.6 (32.0-36.0) g/dL RDW Std Deviation 39.8 (36.4-46.3) fL RDW Coeff of Leo 12.5 (11.5-14.5) % Plt Count 134 (130-400) K/uL MPV 11.2 (9.4-12.4) fL Immature Gran % (Auto) 0.2 % Neut % (Auto) 77.7 % Lymph % (Auto) 11.3 % Rolette % (Auto) 10.6 % Eos % (Auto) 0.0 % Baso % (Auto) 0.2 % Neut # (Auto) 6.39 (1.4-6.5) K/uL Lymph # (Auto) 0.93 L (1.2-3.4) K/uL Rolette # (Auto) 0.87 H (0.24-0.82) K/uL Eos # (Auto) 0.00 (0-0.50) K/uL Baso # (Auto) 0.02 (0-0.2) K/uL Immature Gran # (Auto) 0.02 (0.00-0.02) K/uL Sodium 138 (136-145) mmol/L Potassium 4.1 (3.5-5.1) mmol/L Chloride 105 (98-107) mmol/L Carbon Dioxide 31 (21-32) mmol/L Anion Gap 2 L (3-11) BUN 12 (6-23) mg/dl Creatinine 0.70 (0.6-1.4) mg/dl Est Cr Clr Drug Dosing 101.3 ml/min Est GFR ( Amer) 118.9 ml/min Est GFR (Non-Af Amer) 102.6 ml/min BUN/Creatinine Ratio 17.1 (10-20) Glucose 118 H (70-99(Fasting)) mg/dl Calcium 8.5 (8.5-10.1) mg/dl SARS-CoV-2, RNA, NAAT NEGATIVE (NEGATIVE) Blood Type Antibody Screen Crossmatch 04/24/22 Range/Units 11:00 WBC (4.8-10.8) K/ul RBC (4.63-6.08) M/uL Hgb (14.0-18.0) g/dl Hct (40.1-51.0) % MCV (80.0-100.0) fL MCH (25.0-34.0) pg MCHC (32.0-36.0) g/dL RDW Std Deviation (36.4-46.3) fL RDW Coeff of Leo (11.5-14.5) % Plt Count (130-400) K/uL MPV (9.4-12.4) fL Immature Gran % (Auto) % Neut % (Auto) % Lymph % (Auto) % Rolette % (Auto) % Eos % (Auto) % Baso % (Auto) % Neut # (Auto) (1.4-6.5) K/uL Lymph # (Auto) (1.2-3.4) K/uL Rolette # (Auto) (0.24-0.82) K/uL Eos # (Auto) (0-0.50) K/uL Baso # (Auto) (0-0.2) K/uL Immature Gran # (Auto) (0.00-0.02) K/uL Sodium (136-145) mmol/L Potassium (3.5-5.1) mmol/L Chloride (98-107) mmol/L Carbon Dioxide (21-32) mmol/L Anion Gap (3-11) BUN (6-23) mg/dl Creatinine (0.6-1.4) mg/dl Est Cr Clr Drug Dosing ml/min Est GFR ( Amer) ml/min Est GFR (Non-Af Amer) ml/min BUN/Creatinine Ratio (10-20) Glucose (70-99(Fasting)) mg/dl Calcium (8.5-10.1) mg/dl SARS-CoV-2, RNA, NAAT (NEGATIVE) Blood Type O Negative Antibody Screen NEGATIVE Crossmatch See Detail Medications Administered Current Inpatient Medications Acetaminophen (Acetaminophen 500 Mg Tab) 1,000 mg PO Q8H PRN PRN Reason: MILD Pain Scale 1,2,3 & Pre PT Stop: 05/24/22 16:35 Last Admin: 04/25/22 06:08 Dose: 1,000 mg Al Hydrox/Mg Hydrox/Simethicone (Aluminum/Magnesium Susp 30 Ml Udc) 30 ml PO Q6H PRN PRN Reason: Dyspepsia Stop: 05/24/22 16:35 Bisacodyl (Bisacodyl 10 Mg Supp) 10 mg MT DAILY PRN PRN Reason: Constipation Stop: 05/24/22 16:35 Cyclobenzaprine HCl (Cyclobenzaprine Hcl 5 Mg Tab) 5 mg PO TID PRN PRN Reason: Spasms Stop: 05/24/22 16:35 Diphenhydramine HCl (Diphenhydramine Capsule 25 Mg Cap) 25 mg PO Q6H PRN PRN Reason: Allergic Rhinitis/Insomnia Stop: 05/24/22 16:35 Famotidine (Famotidine 20 Mg Tab) 20 mg PO Q12H PRN PRN Reason: Dyspepsia Stop: 05/24/22 16:35 Hydromorphone HCl (Hydromorphone Inj 0.5 Mg/0.5 Ml Syr) 0.5 mg IV Q3H PRN PRN Reason: MODERATE Pain (Scale 4,5,6) & Pre PT Stop: 05/08/22 16:35 Last Admin: 04/24/22 18:46 Dose: 0.5 mg Hydromorphone HCl (Hydromorphone Inj 1 Mg/Ml Syringe) 1 mg IV Q3H PRN PRN Reason: SEVERE Pain (Scale 7,8,9,10) Stop: 05/08/22 16:35 Hydroxyzine HCl (Hydroxyzine Hcl 25 Mg Tab) 25 mg PO Q8H PRN PRN Reason: Anxiety Stop: 05/24/22 16:35 Lactated Ringer's (Lr) 1,000 mls @ 100 mls/hr IV .Q10H SANDI Stop: 05/24/22 16:35 Last Infusion: 04/25/22 04:00 Dose: Infused Promethazine HCl 12.5 mg/ (Sodium Chloride) 50.5 mls @ 202 mls/hr IV Q6H PRN PRN Reason: Nausea &/or Vomiting Stop: 05/24/22 16:35 Acetaminophen (Ofirmev) 1,000 mg in 100 mls @ 400 mls/hr IV Q8H PRN PRN Reason: Pain Rating 1-3 & Pre PT Stop: 04/25/22 16:36 Last Infusion: 04/24/22 18:59 Dose: Infused Dexamethasone 6 mg/ Syringe 1.5 mls @ 1 mls/min IV DAILY SANDI Stop: 04/27/22 09:02 Last Admin: 04/25/22 08:03 Dose: 1 mls/min Influenza Virus Vaccine Quadrival (Do Not Administer Flu Vaccine) 1 each N/A PRN PRN PRN Reason: Notification Stop: 05/24/22 16:35 Lorazepam (Lorazepam 0.5 Mg Tab) 0.5 mg PO Q8H PRN PRN Reason: Sedation/Anxiety Stop: 05/24/22 16:35 Lorazepam (Lorazepam 2 Mg/1 Ml Vial) 0.5 mg IV Q8H PRN PRN Reason: Sedation/Anxiety Stop: 05/24/22 16:35 Last Admin: 04/24/22 19:49 Dose: 0.5 mg Magnesium Hydroxide (Magnesium Hydroxide Susp 30 Ml Udc) 30 ml PO Q24H PRN PRN Reason: Constipation Stop: 05/24/22 16:35 Metoclopramide HCl (Metoclopramide Hcl Inj 5 Mg/Ml 2 Ml Vial) 10 mg IV Q6H PRN PRN Reason: Nausea &/or Vomiting Stop: 05/24/22 16:35 Miscellaneous (Relpax 40mg Tab ~ Order Awaiting Action) 1 each N/A QS SANDI Stop: 05/25/22 00:00 Last Admin: 04/25/22 08:02 Dose: Not Given Naloxone HCl (Naloxone Hcl 0.4 Mg/1 Ml Vial/Carp) 0.1 mg IV Q5M PRN PRN Reason: Oversedation/Resp depression Stop: 05/24/22 16:35 Ondansetron HCl (Ondansetron Inj 2 Mg/Ml 2 Ml Vial) 4 mg IV Q6H PRN PRN Reason: Nausea &/or Vomiting Stop: 05/24/22 16:35 Ondansetron HCl (Ondansetron 4 Mg Od Tab) 4 mg PO Q6H PRN PRN Reason: Nausea Stop: 05/24/22 16:35 Oxycodone HCl (Oxycodone Hcl Ir 5 Mg Tab (Immediate Release)) 5 - 10 mg PO Q4H PRN PRN Reason: Pain & Pre PT Stop: 05/08/22 16:35 Last Admin: 04/25/22 08:02 Dose: 10 mg Pneumococcal Polyvalent Vaccine (Do Not Administer Pneumococcal Vaccine) 1 each N/A PRN PRN PRN Reason: Notification Stop: 05/24/22 16:35 Polyethylene Glycol (Polyethylene (Miralax) 17 Gm Pack) 17 gm PO Q6 [facility] Stop: 05/25/22 05:59 Last Admin: 04/25/22 06:06 Dose: 17 gm Senna/Docusate Sodium (Docusate Sodium/Senna 50/8.6mg Tab) 2 tab PO HS [facility] Stop: 05/24/22 20:59 Last Admin: 04/24/22 19:53 Dose: 2 tab Sodium Biphosphate/Sodium Phosphate (Sod Phosphate/Sod Biphosphate Enema 132 Ml Btl) 132 ml MT ONE PRN PRN Reason: Constipation Stop: 05/24/22 16:35 Tramadol HCl (Tramadol Hcl 50 Mg Tablet) 50 - 100 mg PO Q4H PRN PRN Reason: Moderate-Severe pain & Pre PT Stop: 05/24/22 16:35 Last Admin: 04/24/22 19:46 Dose: 100 mg Vitamin D (Cholecalciferol 5,000 Units 125 Mcg Tab) 5,000 units PO QAM [facility] Stop: 05/25/22 08:59 Last Admin: 04/25/22 08:02 Dose: 5,000 units
--- NOTE | 2022-04-25 09:56 | Orthopedic Progress Note ---
Date of Service April 25, 2022 Assessment & Plan (1) Neurogenic claudication due to lumbar spinal stenosis: Plan: At this time we will continue physical therapy monitor his TALISHA operatively discharge home next few days. Admission and Anticipated Discharge Date Admission Date: April 24, 2022 Subjective Patient's back pain is now controlled. Leg pain improved Physical Exam Physical Exam: Patient is in bed at this time. He is comfortable. Is good strength testing. Results & Data ([facility]) Vital Signs (Past 12 Hours) Vital Signs Temp Pulse Resp BP Pulse Ox O2 Del Method O2 Flow Rate 04/25/22 07:24 36.5 C 67 18 126/69 97 Room Air 04/25/22 03:03 36.5 C 79 17 131/85 100 Room Air 04/24/22 22:57 36.5 C 81 17 133/79 100 Nasal Cannula 2
--- NOTE | 2022-04-25 11:48 | Hospitalist Progress Note ---
Date of Service April 25, 2022 Assessment & Plan (1) Neurogenic claudication due to lumbar spinal stenosis: (2) BPH (benign prostatic hyperplasia): (3) H/O migraine: Plan Mr. Snow is a 62-year-old male who presented to the [facility] for an elective procedure under the care of Dr. Ruiz for decompression and fusion of L3-L4 and hardware removal and L4-S1 after failed conservative management as an outpatient. Patient relatively healthy at [facility] with history of migraines and BPH. Neurogenic Claudication d/t lumbar spinal stenosis: -POD#1 s/p decompression and fusion surgery L3-L4, along with hardware removal L4-S1 with Dr. ruiz. -BENITO drain x1 -Per ortho for pain control, wound care, anticoagulation and activities. -continue incentive spirometry -PT/OT when appropriate -Hilliard to be removed today Acute blood loss anemia/ post-op vs. dilutional -Monitor H&H, pre op Hgb 14.5; hgb today 11.2 -expected, no need for blood transfusion -continue to monitor H/O Migranes: -Reports 8-9 headaches per month for the past 4 years -Takes Eletriptan PRN -Recently started on Nurtec every other day to prevent headaches Disposition: PCP: Dr. Limon with [facility] CODE STATUS: Full code VTE prophylaxis per admitting team; teds and SCDs Thank you for this consultation. We will follow the patient with you during their hospital stay. You can reach a member of the [facility] Hospitalist Team 23/10 via hospitalist role on tiger text. A total of 25 minutes were spent with greater than 50% of that time face to face with the patient, personally reviewing all current laboratories, imaging studies, past medication reconciliation, outpatient chart review, and discussion with specialists to collaborate care for the patient with attending. Please see attending documentation for corrections and/or additions. Pt was seen and examined in collaboration with Dr. Victoria, please see addendum Admission and Anticipated Discharge Date Admission Date: April 24, 2022 Supervising Physician Co-Signing Physician Notes Pt seen and examined by me, care coordinated w/ Mary Jane PA-C, pls refer to her note above for further detail. Mr. Snow is a 62 yo M w/ hx of migraine HAs, BPH, hx of lumbar stenosis and previous hx of lumbar spine surgery who is now now s/p decompression and fusion of L3-L4 and hardware removal and L4-S1 after failed conservative management as an outpatient. Patient is currently laying in bed, comfortable, in NAD. Reported more pain overnight, now pain much better controlled. He is awake alert oriented answers appropriately. Currently denies any pain or discomfort, no chest pain shortness of breath, headache nausea or abdominal pain. He does have a Hilliard catheter, draining yellow urine. He is moving his toes, SCDs are applied. Heart sounds regular. Lung sounds clear to auscultation bilaterally. Abdomen soft nontender nondistended, positive bowel sounds. Skin is warm and dry. Awaiting PT. Hilliard to be removed. Hgb down, expected, cont. to monitor. MD Julien Subjective Patient was seen and examined in room 306-1. Follow up lumbar surgery. He offers no acute concerns. Back is feeling much better this morning. He had significant pain last evening but finally got ahead of it. Denies f/c/s, chest pain, sob, n/v/d. Tolerating diet. Not yet passing flatus. Review of Systems Review of Systems: All systems reviewed & are unremarkable except as noted in HPI & below Physical Exam Physical Exam: Gen: WD/WN, M sitting up in bed, NAD, A&O x3 HEENT: Normocephalic, atraumatic, conjunctivae moist, sclerae anicteric, mucous membranes moist. Lung: Clear to Auscultation bilaterally, no wheezes/rales/rhonchi Heart: Regular rate, regular rhythm, no murmurs, rubs, or gallops Abdomen: Soft, NT, ND +BS x 4 Extremities: No edema, lumbar dressing CDI with Benito drain and serosang drainage Skin: Warm, no rash, negative turgor. Results & Data Results & Data ([facility]) Vital Signs (Past 12 Hours) Vital Signs Temp Pulse Resp BP Pulse Ox O2 Del Method 04/25/22 07:24 36.5 C 67 18 126/69 97 Room Air 04/25/22 03:03 36.5 C 79 17 131/85 100 Room Air Laboratory Results Short CBC 04/25/22 Range/Units 05:48 WBC 8.23 (4.8-10.8) K/ul Hgb 11.2 L (14.0-18.0) g/dl Hct 32.4 L (40.1-51.0) % Plt Count 134 (130-400) K/uL BMP 04/25/22 05:48 Sodium 138 Potassium 4.1 Chloride 105 Carbon Dioxide 31 BUN 12 Creatinine 0.70 Glucose 118 H Calcium 8.5 Medications Administered Current Inpatient Medications Acetaminophen (Acetaminophen 500 Mg Tab) 1,000 mg PO Q8H PRN PRN Reason: MILD Pain Scale 1,2,3 & Pre PT Stop: 05/24/22 16:35 Last Admin: 04/25/22 06:08 Dose: 1,000 mg Al Hydrox/Mg Hydrox/Simethicone (Aluminum/Magnesium Susp 30 Ml Udc) 30 ml PO Q6H PRN PRN Reason: Dyspepsia Stop: 05/24/22 16:35 Bisacodyl (Bisacodyl 10 Mg Supp) 10 mg LA DAILY PRN PRN Reason: Constipation Stop: 05/24/22 16:35 Cyclobenzaprine HCl (Cyclobenzaprine Hcl 5 Mg Tab) 5 mg PO TID PRN PRN Reason: Spasms Stop: 05/24/22 16:35 Diphenhydramine HCl (Diphenhydramine Capsule 25 Mg Cap) 25 mg PO Q6H PRN PRN Reason: Allergic Rhinitis/Insomnia Stop: 05/24/22 16:35 Famotidine (Famotidine 20 Mg Tab) 20 mg PO Q12H PRN PRN Reason: Dyspepsia Stop: 05/24/22 16:35 Hydromorphone HCl (Hydromorphone Inj 0.5 Mg/0.5 Ml Syr) 0.5 mg IV Q3H PRN PRN Reason: MODERATE Pain (Scale 4,5,6) & Pre PT Stop: 05/08/22 16:35 Last Admin: 04/24/22 18:46 Dose: 0.5 mg Hydromorphone HCl (Hydromorphone Inj 1 Mg/Ml Syringe) 1 mg IV Q3H PRN PRN Reason: SEVERE Pain (Scale 7,8,9,10) Stop: 05/08/22 16:35 Hydroxyzine HCl (Hydroxyzine Hcl 25 Mg Tab) 25 mg PO Q8H PRN PRN Reason: Anxiety Stop: 05/24/22 16:35 Lactated Ringer's (Lr) 1,000 mls @ 100 mls/hr IV .Q10H SANDI Stop: 05/24/22 16:35 Last Infusion: 04/25/22 04:00 Dose: Infused Promethazine HCl 12.5 mg/ (Sodium Chloride) 50.5 mls @ 202 mls/hr IV Q6H PRN PRN Reason: Nausea &/or Vomiting Stop: 05/24/22 16:35 Acetaminophen (Ofirmev) 1,000 mg in 100 mls @ 400 mls/hr IV Q8H PRN PRN Reason: Pain Rating 1-3 & Pre PT Stop: 04/25/22 16:36 Last Infusion: 04/24/22 18:59 Dose: Infused Dexamethasone 6 mg/ Syringe 1.5 mls @ 1 mls/min IV DAILY SANDI Stop: 04/27/22 09:02 Last Admin: 04/25/22 08:03 Dose: 1 mls/min Influenza Virus Vaccine Quadrival (Do Not Administer Flu Vaccine) 1 each N/A PRN PRN PRN Reason: Notification Stop: 05/24/22 16:35 Lorazepam (Lorazepam 0.5 Mg Tab) 0.5 mg PO Q8H PRN PRN Reason: Sedation/Anxiety Stop: 05/24/22 16:35 Lorazepam (Lorazepam 2 Mg/1 Ml Vial) 0.5 mg IV Q8H PRN PRN Reason: Sedation/Anxiety Stop: 05/24/22 16:35 Last Admin: 04/24/22 19:49 Dose: 0.5 mg Magnesium Hydroxide (Magnesium Hydroxide Susp 30 Ml Udc) 30 ml PO Q24H PRN PRN Reason: Constipation Stop: 05/24/22 16:35 Metoclopramide HCl (Metoclopramide Hcl Inj 5 Mg/Ml 2 Ml Vial) 10 mg IV Q6H PRN PRN Reason: Nausea &/or Vomiting Stop: 05/24/22 16:35 Miscellaneous (Relpax 40mg Tab ~ Order Awaiting Action) 1 each N/A QS SANDI Stop: 05/25/22 00:00 Last Admin: 04/25/22 08:02 Dose: Not Given Naloxone HCl (Naloxone Hcl 0.4 Mg/1 Ml Vial/Carp) 0.1 mg IV Q5M PRN PRN Reason: Oversedation/Resp depression Stop: 05/24/22 16:35 Ondansetron HCl (Ondansetron Inj 2 Mg/Ml 2 Ml Vial) 4 mg IV Q6H PRN PRN Reason: Nausea &/or Vomiting Stop: 05/24/22 16:35 Ondansetron HCl (Ondansetron 4 Mg Od Tab) 4 mg PO Q6H PRN PRN Reason: Nausea Stop: 05/24/22 16:35 Oxycodone HCl (Oxycodone Hcl Ir 5 Mg Tab (Immediate Release)) 5 - 10 mg PO Q4H PRN PRN Reason: Pain & Pre PT Stop: 05/08/22 16:35 Last Admin: 04/25/22 08:02 Dose: 10 mg Pneumococcal Polyvalent Vaccine (Do Not Administer Pneumococcal Vaccine) 1 each N/A PRN PRN PRN Reason: Notification Stop: 05/24/22 16:35 Polyethylene Glycol (Polyethylene (Miralax) 17 Gm Pack) 17 gm PO Q6 [facility] Stop: 05/25/22 05:59 Last Admin: 04/25/22 06:06 Dose: 17 gm Senna/Docusate Sodium (Docusate Sodium/Senna 50/8.6mg Tab) 2 tab PO HS [facility] Stop: 05/24/22 20:59 Last Admin: 04/24/22 19:53 Dose: 2 tab Sodium Biphosphate/Sodium Phosphate (Sod Phosphate/Sod Biphosphate Enema 132 Ml Btl) 132 ml LA ONE PRN PRN Reason: Constipation Stop: 05/24/22 16:35 Tramadol HCl (Tramadol Hcl 50 Mg Tablet) 50 - 100 mg PO Q4H PRN PRN Reason: Moderate-Severe pain & Pre PT Stop: 05/24/22 16:35 Last Admin: 04/24/22 19:46 Dose: 100 mg Vitamin D (Cholecalciferol 5,000 Units 125 Mcg Tab) [facility] Stop: 05/25/22 08:59 Last Admin: 04/25/22 08:02 Dose: 5,000 units
[2022-04-25] MEDS: DOCUSATE SODIUM/SENNA 50/8.6MG TAB PO SCH (20:03)
[2022-04-25] MEDS: LORazepam 0.5 MG TAB PO PRN ×2 (20:06→21:04)
[2022-04-26] MEDS: POLYETHYLENE (MIRALAX) 17 GM PACK PO SCH ×4 (00:02→17:33)
[2022-04-26] MEDS: oxyCODONE HCL IR 5 MG TAB (IMMEDIATE RELEASE) PO PRN ×3 (00:02→21:10)
[2022-04-26 06:08] LABS: Hematocrit (blood only) 34.7 % (40.1-51.0); Hemoglobin 11.9 g/dl (14.0-18.0); Mean Corpuscular Hemoglobin 30.1 pg (25.0-34.0); Mean Corpuscular Hgb Conc 34.3 g/dL (32.0-36.0); Mean Corpuscular Volume 87.8 fL (80.0-100.0); Mean Platelet Volume 11.1 fL (9.4-12.4); Platelet Count 147 K/uL (130-400); RDW Coefficient of Variation 12.8 % (11.5-14.5); RDW Standard Deviation 41.2 fL (36.4-46.3); Red Blood Count 3.95 M/uL (4.63-6.08); White Blood Count 8.51 K/ul (4.8-10.8)
[2022-04-26 06:15] LABS: BUN Creatinine Ratio 17.9 (10-20); Calcium 9.4 mg/dl (8.5-10.1); Creatinine Clr Calc Pharmacy 90.9 ml/min; Est GFR (African American) 113.7 ml/min; Est GFR (Non-African American) 98.1 ml/min; Potassium 3.6 mmol/L (3.5-5.1)
[2022-04-26] MEDS: CHOLECALCIFEROL 5,000 UNITS 125 MCG TAB PO SCH (08:34)
[2022-04-26] MEDS: dexAMETHasone 6 MG in SYRINGE 0 ML IV SCH (08:35)
--- NOTE | 2022-04-26 12:37 | Hospitalist Progress Note ---
Date of Service April 26, 2022 Assessment & Plan (1) Neurogenic claudication due to lumbar spinal stenosis: (2) BPH (benign prostatic hyperplasia): (3) H/O migraine: Plan Mr. Snow is a 62-year-old male who presented to the [facility] for an elective procedure under the care of Dr. Ruiz for decompression and fusion of L3-L4 and hardware removal and L4-S1 after failed conservative management as an outpatient. Patient relatively healthy at [facility] with history of migraines and BPH. Neurogenic Claudication d/t lumbar spinal stenosis: -POD#2 s/p decompression and fusion surgery L3-L4, along with hardware removal L4-S1 with Dr. ruiz. -EBL 120mL; BENITO drain x1 -Per ortho for pain control, wound care, anticoagulation and activities. -Monitor H&H, pre op Hgb 14.5; hgb today 11.9 -continue incentive spirometry -PT/OT when appropriate -Hilliard to be removed today Anemia 2/2 blood loss, expected finding post operatively hgb 11.9, no further w/u indicated continue to monitor Urinary Retention will add flomax straight cath prn alerted Dr. Ruiz regarding saddle numbness H/O Migranes: -Reports 8-9 headaches per month for the past 4 years -Takes Eletriptan PRN -Recently started on Nurtec every other day to prevent headaches Disposition: PCP: Dr. Limon with [facility] CODE STATUS: Full code VTE prophylaxis per admitting team; teds and SCDs Thank you for this consultation. We will follow the patient with you during their hospital stay. You can reach a member of the [facility] Hospitalist Team 23/10 via hospitalist role on tiger text. A total of 25 minutes were spent with greater than 50% of that time face to face with the patient, personally reviewing all current laboratories, imaging studies, past medication reconciliation, outpatient chart review, and discussion with specialists to collaborate care for the patient with attending. Please see attending documentation for corrections and/or additions. Pt was seen and examined in collaboration with Dr. Roach, please see addendum Admission and Anticipated Discharge Date Admission Date: April 24, 2022 Supervising Physician Co-Signing Physician Notes Patient is seen and examined at bedside. Back pain at surgical site is controlled with medications. Reports perineal numbness and had urinary retention. Also reports constipation. No other complaints. On exam patient is moderately built and nourished, no apparent distress, normocephalic atraumatic, EOMI, normal breath sounds, clear to auscultation, S1-S2, no murmur, no pedal edema, abdomen soft, nontender, normal bowel sounds, alert, awake, oriented, grossly no focal deficits, back; surgical site in dressing,+ drain. Pain control, DVT prophylaxis as per primary team. Continue bowel regimen to help with constipation. Continue PT OT. Started on Flomax. Bladder scan as needed. Will consider Hilliard catheter placement if needed for urinary retention. I personally reviewed the record. Patient is interviewed and examined at bedside. Patient's care is coordinated with Radha Jane PA-C. Please refer to the documentation above for details of patient's presentation and for discussion of other issues. Subjective Patient was seen and examined in room 306-1. Follow up lumbar surgery. Pt reports requiring 2 straight caths for urinary retention, 600ml and 700ml respectively. He complains of perineal numbness and feels this is causing difficulty urinating. Also no BM in 4 days, he did have a suppos this morning. He was able to feel this. Denies f/c/s, chest pain, sob, n/v/d. He is concerned regarding not able to urinate. Review of Systems Review of Systems: All systems reviewed & are unremarkable except as noted in HPI & below Physical Exam Physical Exam: Gen: WD/WN, M sitting up in bed, NAD, A&O x3 HEENT: Normocephalic, atraumatic, conjunctivae moist, sclerae anicteric, mucous membranes moist. Lung: Clear to Auscultation bilaterally, no wheezes/rales/rhonchi Heart: Regular rate, regular rhythm, no murmurs, rubs, or gallops Abdomen: Soft, NT, ND +BS x 4 Extremities: No edema, lumbar dressing CDI with Benito drain and serosang drainage Skin: Warm, no rash, negative turgor. Results & Data Results & Data ([facility]) Vital Signs (Past 12 Hours) Vital Signs Temp Pulse Resp BP Pulse Ox O2 Del Method 04/26/22 07:19 36.7 C 71 18 127/70 95 Room Air Laboratory Results Short CBC 04/26/22 Range/Units 05:38 WBC 8.51 (4.8-10.8) K/ul Hgb 11.9 L (14.0-18.0) g/dl Hct 34.7 L (40.1-51.0) % Plt Count 147 (130-400) K/uL BMP 04/26/22 05:38 Sodium 140 Potassium 3.6 Chloride 104 Carbon Dioxide 29 BUN 14 Creatinine 0.78 Glucose 104 H Calcium 9.4 Medications Administered Current Inpatient Medications Acetaminophen (Acetaminophen 500 Mg Tab) 1,000 mg PO Q8H PRN PRN Reason: MILD Pain Scale 1,2,3 & Pre PT Stop: 05/24/22 16:35 Last Admin: 04/25/22 14:31 Dose: 1,000 mg Al Hydrox/Mg Hydrox/Simethicone (Aluminum/Magnesium Susp 30 Ml Udc) 30 ml PO Q6H PRN PRN Reason: Dyspepsia Stop: 05/24/22 16:35 Bisacodyl (Bisacodyl 10 Mg Supp) 10 mg SC DAILY PRN PRN Reason: Constipation Stop: 05/24/22 16:35 Last Admin: 04/26/22 08:37 Dose: 10 mg Cyclobenzaprine HCl (Cyclobenzaprine Hcl 5 Mg Tab) 5 mg PO TID PRN PRN Reason: Spasms Stop: 05/24/22 16:35 Diphenhydramine HCl (Diphenhydramine Capsule 25 Mg Cap) 25 mg PO Q6H PRN PRN Reason: Allergic Rhinitis/Insomnia Stop: 05/24/22 16:35 Famotidine (Famotidine 20 Mg Tab) 20 mg PO Q12H PRN PRN Reason: Dyspepsia Stop: 05/24/22 16:35 Hydromorphone HCl (Hydromorphone Inj 0.5 Mg/0.5 Ml Syr) 0.5 mg IV Q3H PRN PRN Reason: MODERATE Pain (Scale 4,5,6) & Pre PT Stop: 05/08/22 16:35 Last Admin: 04/24/22 18:46 Dose: 0.5 mg Hydromorphone HCl (Hydromorphone Inj 1 Mg/Ml Syringe) 1 mg IV Q3H PRN PRN Reason: SEVERE Pain (Scale 7,8,9,10) Stop: 05/08/22 16:35 Hydroxyzine HCl (Hydroxyzine Hcl 25 Mg Tab) 25 mg PO Q8H PRN PRN Reason: Anxiety Stop: 05/24/22 16:35 Promethazine HCl 12.5 mg/ (Sodium Chloride) 50.5 mls @ 202 mls/hr IV Q6H PRN PRN Reason: Nausea &/or Vomiting Stop: 05/24/22 16:35 Dexamethasone 6 mg/ Syringe 1.5 mls @ 1 mls/min IV DAILY SANDI Stop: 04/27/22 09:02 Last Admin: 04/26/22 08:35 Dose: 1 mls/min Influenza Virus Vaccine Quadrival (Do Not Administer Flu Vaccine) 1 each N/A PRN PRN PRN Reason: Notification Stop: 05/24/22 16:35 Lorazepam (Lorazepam 0.5 Mg Tab) 0.5 mg PO Q8H PRN PRN Reason: Sedation/Anxiety Stop: 05/24/22 16:35 Last Admin: 04/25/22 21:04 Dose: 0.5 mg Lorazepam (Lorazepam 2 Mg/1 Ml Vial) 0.5 mg IV Q8H PRN PRN Reason: Sedation/Anxiety Stop: 05/24/22 16:35 Last Admin: 04/24/22 19:49 Dose: 0.5 mg Magnesium Hydroxide (Magnesium Hydroxide Susp 30 Ml Udc) 30 ml PO Q24H PRN PRN Reason: Constipation Stop: 05/24/22 16:35 Metoclopramide HCl (Metoclopramide Hcl Inj 5 Mg/Ml 2 Ml Vial) 10 mg IV Q6H PRN PRN Reason: Nausea &/or Vomiting Stop: 05/24/22 16:35 Miscellaneous (Relpax 40mg Tab ~ Order Awaiting Action) 1 each N/A QS SANDI Stop: 05/25/22 00:00 Last Admin: 04/26/22 08:34 Dose: Not Given Naloxone HCl (Naloxone Hcl 0.4 Mg/1 Ml Vial/Carp) 0.1 mg IV Q5M PRN PRN Reason: Oversedation/Resp depression Stop: 05/24/22 16:35 Ondansetron HCl (Ondansetron Inj 2 Mg/Ml 2 Ml Vial) 4 mg IV Q6H PRN PRN Reason: Nausea &/or Vomiting Stop: 05/24/22 16:35 Ondansetron HCl (Ondansetron 4 Mg Od Tab) 4 mg PO Q6H PRN PRN Reason: Nausea Stop: 05/24/22 16:35 Oxycodone HCl (Oxycodone Hcl Ir 5 Mg Tab (Immediate Release)) 5 - 10 mg PO Q4H PRN PRN Reason: Pain & Pre PT Stop: 05/08/22 16:35 Last Admin: 04/26/22 00:02 Dose: 10 mg Pneumococcal Polyvalent Vaccine (Do Not Administer Pneumococcal Vaccine) 1 each N/A PRN PRN PRN Reason: Notification Stop: 05/24/22 16:35 Polyethylene Glycol (Polyethylene (Miralax) 17 Gm Pack) 17 gm PO Q6 SANDI Stop: 05/25/22 05:59 Last Admin: 04/26/22 06:30 Dose: 17 gm Senna/Docusate Sodium (Docusate Sodium/Senna 50/8.6mg Tab) 2 tab PO HS [facility] Stop: 05/24/22 20:59 Last Admin: 04/25/22 20:03 Dose: 2 tab Sodium Biphosphate/Sodium Phosphate (Sod Phosphate/Sod Biphosphate Enema 132 Ml Btl) 132 ml SC ONE PRN PRN Reason: Constipation Stop: 05/24/22 16:35 Tramadol HCl (Tramadol Hcl 50 Mg Tablet) 50 - 100 mg PO Q4H PRN PRN Reason: Moderate-Severe pain & Pre PT Stop: 05/24/22 16:35 Last Admin: 04/24/22 19:46 Dose: 100 mg Vitamin D (Cholecalciferol 5,000 Units 125 Mcg Tab) 5,000 units PO QAM [facility] Stop: 05/25/22 08:59 Last Admin: 04/26/22 08:34 Dose: 5,000 units
--- NOTE | 2022-04-26 12:44 | Orthopedic Progress Note ---
Date of Service April 26, 2022 Assessment & Plan (1) Neurogenic claudication due to lumbar spinal stenosis: Plan: Assessment status post lumbar decompression fusion replant time we will continue physical therapy. He may require reinsertion of a Hilliard catheter and consultation with urology. He does have a history of urinary retention after his past surgeries. We will maintain the TALISHA drain at this time. Admission and Anticipated Discharge Date Admission Date: April 24, 2022 Subjective Patient is up and ambulating. He states he is comfortable. Still struggling with urination and urinary retention. Describing some numbness in the perineal area. He has no radicular complaints or numbness in his legs. Physical Exam Physical Exam: On exam he is in a chair at the bedside. He did get up for me and ambulate about the room without difficulty. Excellent strength testing. Results & Data ([facility]) Vital Signs (Past 12 Hours) Vital Signs Temp Pulse Resp BP Pulse Ox O2 Del Method 04/26/22 07:19 36.7 C 71 18 127/70 95 Room Air
[2022-04-26] MEDS: TAMSULOSIN HCL 0.4 MG CAP PO SCH (13:52)
[2022-04-26] MEDS: DOCUSATE SODIUM/SENNA 50/8.6MG TAB PO SCH (21:07)
[2022-04-27] MEDS: oxyCODONE HCL IR 5 MG TAB (IMMEDIATE RELEASE) PO PRN ×2 (03:03→08:04)
[2022-04-27] MEDS: dexAMETHasone 6 MG in SYRINGE 0 ML IV SCH (08:00)
[2022-04-27] MEDS: CHOLECALCIFEROL 5,000 UNITS 125 MCG TAB PO SCH (08:00)
[2022-04-27] MEDS: TAMSULOSIN HCL 0.4 MG CAP PO SCH (08:00)
--- NOTE | 2022-04-27 08:42 | Discharge Summary ---
Date of Service April 27, 2022 Admission HPI Per Admitting Provider This is a 62-year-old male who presents with chronic persistent back and bilateral leg pain after an extensive course of nonoperative care is here for surgical invention. Principal Diagnosis Lumbar spinal stenosis with neurogenic claudication Discharge Data Allergies Allergy/AdvReac Type Severity Reaction Status Date / Time No Known Allergies Allergy Verified 04/24/22 11:12 Consultations 04/24/22 16:36 Consult Hospitalist Routine Procedures Performed Operation Date: 04/24/22 12:45 Actual Procedures p L3-L4 Decompression and L3-S1 Fusion, Spinal Cord Monitoring(Not Applicable) - Randell Ruiz DO s L4-S1 Hardware Removal, (Not Applicable) - Randell Ruiz DO Ordered Studies 04/24/22 12:45 [place] lumbar spine 2-3V Routine Hospital Course (1) Neurogenic claudication due to lumbar spinal stenosis: Patient 1 lumbar decompression fusion tolerated this well was taken to the orthopedic for postoperative. He tolerated physical therapy postop day #1 and 2 on postop day #3 he is urinating well bowels working well. TALISHA drain decreased probably. Excellent strength testing. Subsidy discharged home. Total Time Total Time Spent Total Time Spent (In Minutes): 20 minutes Discharge Plan Discharge Items Patient Disposition: Home - Self-Care Reason For Visit: POSTOP Discharge Diagnosis: Lumbar spinal stenosis with neurogenic claudication Activity: As commented below Non-emergency contact: Primary Care Provider Call non-emergency contact if: you have any medication questions Follow-up/Referrals: Harish Limon MD [Primary Care Provider] - Diet: Regular Addtl Attending Provider Instructions: ACTIVITY RECOMMENDATIONS: SELF CARE INSTRUCTIONS AFTER THORACIC/LUMBAR FUSIONS 1. You may walk to your tolerance. It is good exercise for your legs and back. Expect some back and intermittent leg aches and pains. 2. You may perform "counter-top" level activities (make a sandwich, chaz with a project, etc.). 3. No bending or lifting of more than 10 pounds or back twisting of any nature (roll like a log when turning in bed). 4. You may ride in a car for 20-30 minutes at a time. No driving until after your first visit with your doctor. 5. Frequent changes of position and restricting sitting to 30 minutes at a time will help limit the amount of back spasms and stiffness you may experience. 6. You may discontinue the use of ambulatory aids (cane, crutches, etc.) once your strength and confidence allow. 7. You may garment inspector the shower and let water strike your incision when you arrive home at least once daily. Do not take a tub bath, sit in a hot tub or go into a swimming pool until after your first recheck in the office. SPECIAL CARE INSTRUCTIONS: VERY IMPORTANT TO READ AND REVIEW A. Your surgical incision has been closed with a cosmetic suture under the skin that will dissolve in about 6 weeks. In 14 days, you can use a pair of clean scissors and cut the suture that is left outside of the skin at the ends of your incision. 1. The small skin tapes can be removed 7 days after surgery if they have not fallen off by that point. 2. You may keep the wound open to air as much as possible to promote healing after post-op day number 5 unless told otherwise by your doctor. 3. If you think the wound looks like it is becoming infected (redness or worsening drainage) and/or you are experiencing fever, chill or worsening back pain and muscle spasms, contact the office so that we may evaluate you as soon as possible. B. Complications are uncommon, but please contact us if you have any signs or symptoms of: 1. wound infection (fever higher than 102.5 degrees F, redness, separation of wound, drainage, or increasing pain from the incision) 2. blood clots in legs (pain, swelling, redness and warmth in legs) 3. urinary tract infection (fever higher than 102.5 degrees F, burning upon urination or increased frequency of urination) 4. nerve problems (inability to walk on your toes or heels, numbness, loss of bowel or bladder control) 5. any other symptoms that concern you C. Please call the office at if you have any concerns or questions about your operation or recovery. D. No smoking! Smoking drastically decreases the chance of a solid fusion. E. Do not take any anti-inflammatory medications (Indocin, Advil, Motrin, Aspirin, Naprosyn, etc.) as these may inhibit the chance of a solid fusion. Tylenol is okay to take for pain. MANAGING PAIN AFTER SPINAL SURGERY 1. Narcotic medication is intended for short-term use and will be provided for surgical pain. Surgical pain usually lasts for a period of 4-6 weeks. Narcotic medication includes Percocet, Vicodin, Darvocet, Tylenol #3 or Lortab. 2. Longer-term pain is more appropriately treated with non-narcotic medication such as Tylenol ES. 3. Muscle spasm is not appropriately treated with narcotics. Muscle relaxers such as Soma, Flexeril or Skelaxin can be used along with Tylenol ES. 4. Remember that we all live with some "aches and pains". This is not unusual or uncommon after an injury or as we get older. a. Back pain is expected and may include muscle spasms for 4 to 6 weeks after surgery. The pain should gradually improve. If the pain worsens for no apparent reason, please contact the office. b. Intermittent leg pain may also be experienced and should not be concerned about unless it worsens for no apparent reason. If so, please contact the office. 5. We will provide appropriate medication within the normal guidelines of their prescribed use. We will also be very cautious and aware of potential abuse and extended duration of patients' medication needs. a. Pain medications are for your comfort and to assist with sleep and rest so that the tissue can heal. They are not provided in order to return to normal activity and should not be used through the day. To do so or worsening pain at night can result from ongoing tissue damage and development of tolerance to the prescribed medicine. 6. Please allow 2-3 days to process refills. Prescriptions will not be mailed but must be picked up at the office. FOLLOW UP VISIT: Keep your scheduled follow-up appointment. Any questions, please call the office at . Pending Studies at Discharge: No Stand-Alone Forms: [employer] [facility], Smoking Cessation Medications and DC Order Prescriptions: New tramadol 50 mg tablet 50 mg PO Q6H PRN (Reason: pain, moderate) Qty: 30 0RF oxycodone 5 mg tablet 5 mg PO Q6H PRN (Reason: pain, severe) Qty: 30 0RF Continued multivitamin Tablet 1 tab PO QAM eletriptan [Relpax] 40 mg Tablet 40 mg PO DIRECTED PRN (Reason: Migraine Headache) Rx Instructions: take 1 tab at onset of headache; if no relief, may repeat 1 tab after at least 2 hrs; max = 2 tabs/24 hrs cyclobenzaprine 5 mg Tablet 5 mg PO TID PRN (Reason: Spasms) cholecalciferol (vitamin D3) [Vitamin D3] 125 mcg (5,000 unit) Tablet 125 mcg PO QAM Fish Oil 100-160-1,000 mg Capsule 1 cap PO QAM Probiotic 5 billion cell Capsule, Sprinkle 1 cap PO DAILY Discharge Orders: Discharge Order (Routine); Ordered 04/27/22 Ordered By: Randell Ruiz Admission Data Admit Date/Time: 04/24/22 14:28 Attending Provider: Randell Ruiz Admit Provider: Randell Ruiz Primary Care Provider: Harish iLmon Other Providers: Paula Ace ; Praful Roach ; Radha William
--- NOTE | 2022-04-27 08:47 | Hospitalist Progress Note ---
Date of Service April 27, 2022 Assessment & Plan (1) Neurogenic claudication due to lumbar spinal stenosis: (2) BPH (benign prostatic hyperplasia): (3) H/O migraine: Plan Mr. Snow is a 62-year-old male who presented to the [facility] for an elective procedure under the care of Dr. Ruiz for decompression and fusion of L3-L4 and hardware removal and L4-S1 after failed conservative management as an outpatient. Patient relatively healthy at [facility] with history of migraines and BPH. Neurogenic Claudication d/t lumbar spinal stenosis: -POD#3 s/p decompression and fusion surgery L3-L4, along with hardware removal L4-S1 with Dr. ruiz. -EBL 120mL; TALISHA drain x1 -Per ortho for pain control, wound care, anticoagulation and activities. -Monitor H&H, pre op Hgb 14.5; hgb today 11.9 -continue incentive spirometry -PT/OT when appropriate -Hilliard removed - urination improved with Flomax- continue on dc Anemia 2/2 blood loss, expected finding post operatively hgb 11.9, no further w/u indicated continue to monitor Urinary Retention will add flomax straight cath prn Dr. Ruiz aware of decreased sensation in perineal region H/O Migranes: -Reports 8-9 headaches per month for the past 4 years -Takes Eletriptan PRN -Recently started on Nurtec every other day to prevent headaches Disposition: PCP: Dr. Limon with [facility] CODE STATUS: Full code VTE prophylaxis per admitting team; teds and SCDs Thank you for this consultation. We will follow the patient with you during their hospital stay. You can reach a member of the [facility] Hospitalist Team 23/10 via hospitalist role on tiger text. A total of 25 minutes were spent with greater than 50% of that time face to face with the patient, personally reviewing all current laboratories, imaging studies, past medication reconciliation, outpatient chart review, and discussion with specialists to collaborate care for the patient with attending. Please see attending documentation for corrections and/or additions. Pt was seen and examined in collaboration with Dr. Roach, please see addendum Admission and Anticipated Discharge Date Admission Date: April 24, 2022 Supervising Physician Co-Signing Physician Notes Patient is seen and examined at bedside. Back pain is much improved. Urinary retention resolved. Had BM. No other complaints. On exam patient is moderately built and nourished, no apparent distress, normocephalic atraumatic, EOMI, normal breath sounds, clear to auscultation, S1-S2, no murmur, no pedal edema, abdomen soft, nontender, normal bowel sounds, alert, awake, oriented, grossly no focal deficits, back; surgical site in dressing. Pain control, DVT prophylaxis as per primary team. Continue bowel regimen to help with constipation. Continue PT OT. Advised to continue Flomax for now. I personally reviewed the record. Patient is interviewed and examined at bedside. Patient's care is coordinated with Radha William PA-C. Please refer to the documentation above for details of patient's presentation and for discussion of other issues. Subjective Seen and examined in 306 in follow-up for lumbar surgery. Patient is up and ambulating and is comfortable. Has incisional pain but it is improved. Urinary retention resolving with Flomax, which will be continued on discharge. Describing some numbness in the perineal area. He has no radicular complaints or numbness in his legs. Review of Systems Review of Systems: At least ten systems reviewed and negative except as noted in the HPI. Physical Exam Physical Exam: Gen: WD/WN, NAD, lying in bed, A&Ox3 HEENT: Normocephalic, atraumatic, conjunctivae moist, sclerae anicteric, mucous membranes moist Lung: Clear to Auscultation bilaterally, no wheezes/rales/rhonchi Heart: Regular rate, regular rhythm, no murmurs, rubs, or gallops Abdomen: Soft, NT, ND +BS x 4 Extremities: +spinal dressing c/d/i. +TALISHA drain visualized. No edema Skin: Warm, no rash Results & Data Results & Data ([facility]) Vital Signs (Past 12 Hours) Vital Signs Temp Pulse Resp BP Pulse Ox O2 Del Method 04/27/22 07:23 36.5 C 67 18 122/77 100 Room Air 04/26/22 20:57 36.7 C 71 16 134/80 98 Room Air
== END 2022-04-27 12:33 | disposition home or self-care (01) | DRG 454 ==
LOC: ASU 10:41 → 3E 14:28
DX: M48.062 Spinal stenosis, lumbar region with neurogenic claudication; G43.909 Migraine, unspecified, not intractable, without status migrainosus; R33.9 Retention of urine, unspecified; D62 Acute posthemorrhagic anemia; Z96.652 Presence of left artificial knee joint; N40.0 Benign prostatic hyperplasia without lower urinary tract symptoms; Z98.1 Arthrodesis status